=== PATIENT | female | born 1955 | race Caucasian/White ===

== ENCOUNTER 2016-10-13 16:52 | Emergency (ER) | payer OTHER ==
[2016-10-13 20:21] LABS: HEMOGLOBIN 14.5 gm/dl (12.3-15.3); RED BLOOD COUNT 4.83 M/UL (4.00-5.10); WHITE BLOOD COUNT 10.9 K/UL (4.5-11.0)
[2016-10-13 20:44] LABS: BUN/CREATININE RATIO 23 (0-10)
== END 2016-10-13 21:38 | disposition home or self-care (01) ==
LOC: ER1 16:52
PROVIDERS: Emergency Medicine
DX: E11.65 Type 2 diabetes mellitus with hyperglycemia (principal); N30.00 Acute cystitis without hematuria; J44.9 Chronic obstructive pulmonary disease, unspecified; Z88.0 Allergy status to penicillin; Z88.5 Allergy status to narcotic agent; Z79.84 Long term (current) use of oral hypoglycemic drugs; Z79.899 Other long term (current) drug therapy
CPT/HCPCS: 36415; 80048; 81001; 82009; 82962; 85025; 96361; 96365; 99284

== ENCOUNTER → 2021-04-13 | Outpatient (CLI) | payer OTHER ==
[~2021-04-13] MED LIST: PYRIDIUM100 MG PO
== END ==
LOC: MAMO 03-28 13:30
DX: Z12.31 Encounter for screening mammogram for malignant neoplasm of breast (principal)
CPT/HCPCS: 77063; 77067

== ENCOUNTER → 2021-07-13 | Outpatient (CLI) | payer OTHER | LOC: KOH-I 10:37 | DX: M25.561 Pain in right knee (principal) | CPT/HCPCS: 73562 ==

== ENCOUNTER 2021-07-23 14:10 | Emergency (ER) | payer OTHER ==
[2021-07-24] MEDS ORDERED: MOBIC15 MG PO (03:31)
== END 2021-07-24 03:37 | disposition home or self-care (01) ==
LOC: ER1 14:10
DX: M17.11 Unilateral primary osteoarthritis, right knee (principal); E11.9 Type 2 diabetes mellitus without complications; Z88.5 Allergy status to narcotic agent
CPT/HCPCS: 73562; 99283

== ENCOUNTER → 2021-07-24 | Outpatient (CLI) | payer OTHER ==
[~2021-07-24] MED LIST changes: +MOBIC15 MG PO
== END ==
LOC: US 15:00
DX: R22.41 Localized swelling, mass and lump, right lower limb (principal)
CPT/HCPCS: 93971

== ENCOUNTER → 2022-01-22 | Outpatient (CLI) | payer OTHER | LOC: KOH-I 08:59 | DX: G43.909 Migraine, unspecified, not intractable, without status migrainosus (principal); R20.8 Other disturbances of skin sensation | CPT/HCPCS: 70450 ==